=== PATIENT | female | born 1990 | race Caucasian/White ===

== ENCOUNTER 2020-11-06 03:30 | Emergency (ER) | payer OTHER ==
[~2020-11-06] VITALS: Ht 149.9 cm; Wt 52.3 kg
--- NOTE | 2020-11-06 03:59 | NUR ---
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
[2020-11-06 04:24] LABS: HCG UR SG 1.015 (1.003-1.030); MICROSCOPIC INDICATED
[2020-11-06] MEDS ORDERED: ONDANSETRON ODT 4 MG ONE (04:24)
[2020-11-06] MEDS ORDERED: IBUPROFEN 600 MG TABLET ONE (04:24)
--- NOTE | 2020-11-06 04:26 | NUR ---
Medicated per emar for nausea and pelvic cramping at 6 Updated on estimated poc
[2020-11-06] MEDS ORDERED: ONDANSETRON ODT 4 MG PO ONE (04:30)
[2020-11-06] MEDS ORDERED: IBUPROFEN 600 MG TABLET PO ONE (04:30)
[2020-11-06 04:42] VITALS: BP 94/57
[2020-11-06] MEDS ORDERED: CEFDINIR 300 MG CAPSULE PO ONE (05:00)
--- NOTE | 2020-11-06 05:10 | NUR ---
Patient given discharge instructions and they have confirmed that they understand the instructions. Patient ambulatory with steady gait.
== END 2020-11-06 05:12 | disposition home or self-care (01) ==
LOC: ED 05:00
DX: N30.01 Acute cystitis with hematuria (principal)
CPT/HCPCS: 81001; 81025; 87077; 87086; 99283; Q0162; 87186